=== PATIENT | male | born 1940 | race Caucasian/White ===

== ENCOUNTER 2021-08-11 13:42 | Observation (INO) ==
[2021-08-12] MEDS ORDERED: Naloxone 0.4 MG/ML INJ IVP PRN (07:49)
[2021-08-12] MEDS ORDERED: Perflutren Lipid Microsphere 1.3 ML in 0.9 % Sodium Chloride 8.7 ML IVP PRN (07:52)
[2021-08-12] MEDS ORDERED: 0.9 % Sodium Chloride 500 ML IVC ONE (08:35)
[2021-08-12 09:09] LABS: Basophils # 0.1 K/mcL (0.0-0.2); Basophils % 0.4 %; Eosinophils # 0.1 K/mcL (0.0-0.6); Eosinophils % 0.9 %; Hematocrit 36.3 % (37.5-50.1); Hemoglobin 12.4 g/dL (12.9-16.9); Immature Granulocytes % 0.3 % (0-4); Lymphocytes # 1.5 K/mcL (0.6-4.6); Mean Corpuscular HGB Conc 34.2 g/dL (31.6-35.5); Mean Corpuscular Hemoglobin 29.5 pg (28.0-33.3); Mean Corpuscular Volume 86.4 fL (83.0-100.0); Mean Platelet Volume 9.6 fL (9.4-12.4); Monocytes # 1.5 K/mcL (0.0-1.3); Neutrophils # 8.4 K/mcL (1.6-8.9); Platelet Count 235 K/mcL (140-400); Red Cell Distribution Width 12.4 % (11.5-14.5); Segmented Neutrophils % 72.4 %; White Blood Count 11.7 K/mcL (4.3-11.1)
[2021-08-12 09:20] LABS: INR 1.2; Prothrombin Time 13.2 Seconds (9.4-12.1)
[2021-08-12 09:27] LABS: BUN/Creatinine Ratio 18 (6-26); Blood Urea Nitrogen 16 mg/dL (8-23); Calcium 9.7 mg/dL (8.6-10.3); Carbon Dioxide 27 mEq/L (23-29); Chloride 97 mEq/L (98-107); Glucose 101 mg/dL (70-105); Osmolality,Calculated 277 (280-300); Potassium 3.9 mEq/L (3.5-5.1); Sodium 133 mEq/L (136-145); eGFR For African Americans > 60 (> 60); eGFR For Non-African Americans > 60 (> 60)
[2021-08-12] MEDS: Acetaminophen 325 MG TABLET PO PRN (11:54)
[2021-08-12] MEDS ORDERED: *HR* HYDROcodone/Acet 5/325 mg TABLET PO ONE ×2 (12:11→15:30)
[2021-08-12] MEDS ORDERED: Regadenoson 0.4 MG/5 ML SYRINGE IVP ONE (13:02)
[2021-08-12 13:19] LABS: Influenza A PCR Negative (Negative); Influenza B PCR Negative (Negative); Resp. Syncytial Virus PCR Negative (Negative)
[2021-08-12 13:20] LABS: SARS-CoV-2 by PCR (In House) Negative (Negative)
[2021-08-12] MEDS: *HR* Heparin 5,000 UNIT/ML VIAL SQ SCH ×2 (14:51→21:36)
[2021-08-12] MEDS ORDERED: methocarbamoL 750 MG TABLET PO ONE (17:34)
[2021-08-12] MEDS ORDERED: Ketorolac 30 MG/ML VIAL IVP ONE (17:51)
[2021-08-13 03:53] LABS: Basophils # 0.1 K/mcL (0.0-0.2); Basophils % 0.6 %; Eosinophils # 0.4 K/mcL (0.0-0.6); Eosinophils % 4.4 %; Hematocrit 35.2 % (37.5-50.1); Hemoglobin 11.7 g/dL (12.9-16.9); Immature Granulocytes % 0.3 % (0-4); Lymphocytes # 1.2 K/mcL (0.6-4.6); Lymphocytes % 13.9 %; Mean Corpuscular HGB Conc 33.2 g/dL (31.6-35.5); Mean Corpuscular Hemoglobin 29.3 pg (28.0-33.3); Mean Corpuscular Volume 88.2 fL (83.0-100.0); Mean Platelet Volume 9.9 fL (9.4-12.4); Monocytes # 1.3 K/mcL (0.0-1.3); Monocytes % 15.5 %; Neutrophils # 5.7 K/mcL (1.6-8.9); Platelet Count 213 K/mcL (140-400); Red Blood Count 3.99 M/mcL (4.19-5.50); Red Cell Distribution Width 12.4 % (11.5-14.5); Segmented Neutrophils % 65.3 %; White Blood Count 8.7 K/mcL (4.3-11.1)
[2021-08-13 04:13] LABS: BUN/Creatinine Ratio 26 (6-26); Blood Urea Nitrogen 28 mg/dL (8-23); Calcium 9.3 mg/dL (8.6-10.3); Carbon Dioxide 29 mEq/L (23-29); Chloride 97 mEq/L (98-107); Chol/HDL Ratio 3.8 (0-4.9); Cholesterol 220 mg/dL (< 200); Glucose 101 mg/dL (70-105); HDL Cholesterol 58 mg/dL (40-59); LDL Cholesterol,Calculated 138 mg/dL (< 100); Magnesium 2.6 mg/dL (1.6-2.6); Osmolality,Calculated 284 (280-300); Potassium 4.1 mEq/L (3.5-5.1); Sodium 134 mEq/L (136-145); Triglycerides 118 mg/dL (< 150); eGFR For African Americans > 60 (> 60); eGFR For Non-African Americans > 60 (> 60)
[2021-08-13] MEDS: Acetaminophen 325 MG TABLET PO PRN ×2 (05:43→20:51)
[2021-08-13] MEDS: *HR* Heparin 5,000 UNIT/ML VIAL SQ SCH ×3 (05:44→21:02)
[2021-08-13] MEDS ORDERED: methocarbamoL 750 MG TABLET PO ONE (08:21)
[2021-08-13] MEDS ORDERED: Ketorolac 30 MG/ML VIAL IVP ONE (08:30)
[2021-08-13] MEDS ORDERED: Isovue-370 500 ML BOTTLE IVP ONE (10:28)
[2021-08-13] MEDS: lisinopriL 20 MG TABLET PO SCH (19:15)
[2021-08-13] MEDS: methocarbamoL 750 MG TABLET PO PRN (20:51)
[2021-08-14] MEDS: *HR* Heparin 5,000 UNIT/ML VIAL SQ SCH (05:01)
[2021-08-14] MEDS: lisinopriL 20 MG TABLET PO SCH (07:58)
[2021-08-14] MEDS: methocarbamoL 750 MG TABLET PO PRN (07:58)
[2021-08-14] MEDS ORDERED: levoFLOXacin 750 MG TABLET PO SCH (09:00)
== END 2021-08-14 12:24 | disposition home or self-care (01) ==
LOC: 3BNU → SUATTDRO 08-12 06:50
PROVIDERS: ADMIT Internal Medicine; ATTEND General Practice